=== PATIENT | male | born 1945 | race Caucasian/White ===

== ENCOUNTER 2019-01-17 09:26 | Inpatient (IN) | payer MEDICARE, OTHER ==
[~2019-01-17 09:26] MED LIST: Acetaminophen 1,000 MG in Premix Bag 1 BAG IV SCH; Aspirin 325 MG Tab.EC PO SCH; Famotidine 20 MG/2 ML SDV IVPUSH SCH; Ketorolac 30 MG/ML SDV IVPUSH SCH; Lactated Ringers 1,000 ML IV SCH; Ropivacaine 49.25 ML, Ketorolac 30 MG, EPINEPHrine 0.5 MG in Sodium Chloride 0.9% 49.25 ML INJECT SCH; Ropivacaine 49.25 ML, Ketorolac 30 MG, EPINEPHrine 0.5 MG, cloNIDine 80 MCG in Sodium C... INJECT SCH; Scopolamine 1.5 MG Transdermal Patch TRDERM SCH; Tranexamic Acid 2,000 MG in Sodium Chloride 0.9% 100 ML IV ONE
[2019-01-17] MEDS ORDERED: Lidocaine 2% 5 ML SDV ONE (09:58)
[2019-01-17] MEDS ORDERED: Propofol 200 MG/20 ML SDV ONE ×2 (09:58→09:59)
[2019-01-17] MEDS ORDERED: Midazolam 1 MG/ML 2 ML SDV ONE (09:59)
[2019-01-17] MEDS ORDERED: fentaNYL 100 MCG/2 ML SDV ONE (09:59)
--- NOTE | 2019-01-17 10:23 | PCM.PREANE ---
Preanesthetic Assessment - Anesthesia/Transfusion/Family Hx Anesthesia History: Prior Anesthesia Without Reaction Family History of Anesthesia Reaction: No Transfusion History: No Prior Transfusion(s) Intubation History: Unknown - Review of Systems General: No Symptoms Pulmonary: No Symptoms Cardiovascular: No Symptoms Gastrointestinal: No Symptoms Neurological: No Symptoms Other: Reports: None - Physical Assessment O2 Sat by Pulse Oximetry: 98 Respiratory Rate: 16 Vital Signs: Last Vital Signs Temp 36.4 C 01/17/19 09:42 Pulse 89 01/17/19 09:42 Resp 16 01/17/19 09:42 BP 142/80 H 01/17/19 09:42 Pulse Ox 98 01/17/19 09:42 Height: 1.8 m Weight: 85.729 kg ASA Class: 2 Mental Status: Alert & Oriented x3 Airway Class: Mallampati = 2 Dentition: Reports: Dentures (upper and lower) Thyro-Mental Finger Breadths: 3 Mouth Opening Finger Breadths: 3 ROM/Head Extension: Limited/Partial Lungs: Clear to Auscultation, Normal Respiratory Effort Cardiovascular: Regular Rate, Regular Rhythm - Allergies Allergies/Adverse Reactions: Allergies Allergy/AdvReac Type Severity Reaction Status Date / Time No Known Allergies Allergy Verified 01/17/19 09:43 - Blood Blood Available: No - Anesthesia Plan Pre-Op Medication Ordered: None - Acknowledgements Anesthesia Type Planned: Spinal (general anesthesia back-up) Pt an Appropriate Candidate for the Planned Anesthesia: Yes Alternatives and Risks of Anesthesia Discussed w Pt/Guardian: Yes Pt/Guardian Understands and Agrees with Anesthesia Plan: Yes PreAnesthesia Questionnaire - Past Health History Medical/Surgical History: Denies Medical/Surgical History HEENT History: Reports: Other (See Below) Other HEENT History: uses reading glasses Musculoskeletal History: Reports: Fracture, Osteoarthritis Other Musculoskeletal History: hx of fx clavicle Oncologic (Cancer) History: Reports: Squamous Cell Carcinoma Other Oncologic History: excised from left ear - Past Surgical History Head Surgeries/Procedures: Reports: None Musculoskeletal Surgical History: Reports: Arthroscopic Knee (right knee last year), Hip Replacement (left) Dermatological Surgical History: Reports: Skin Biopsy - SUBSTANCE USE Smoking Status *Q: Never Smoker Recreational Drug Use History: No - HOME MEDS Home Medications: Home Meds . [No Known Home Meds] 03/03/16 [History] - CURRENT (IN HOUSE) MEDS Current Meds: Current Medications Famotidine (Pepcid) 40 mg IVPUSH ONARRIVE [facility] Last Admin: 01/17/19 09:45 Dose: 40 mg Acetaminophen 1,000 mg/ Premix 100 mls @ 400 mls/hr IV ONARRIVE [facility] Last Admin: 01/17/19 09:50 Dose: 400 mls/hr Lactated Ringer's (Ringers, Lactated) 1,000 mls @ 100 mls/hr IV ASDIRECTED [facility] Last Admin: 01/17/19 09:44 Dose: 100 mls/hr Ropivacaine 49.25 ml/Ketorolac Tromethamine 30 mg/Epinephrine HCl 0.5 mg/ Sodium Chloride 100 mls @ 3,000 mls/hr INJECT ASDIRECTED [facility] Ketorolac Tromethamine (Toradol) 30 mg IVPUSH ONARRIVE [facility] Last Admin: 01/17/19 09:46 Dose: 30 mg Scopolamine (Transderm-Scop) 1.5 mg TRDERM ONARRIVE [facility] Last Admin: 01/17/19 09:44 Dose: 1.5 mg Discontinued Medications Fentanyl (Sublimaze) Confirm Administered Dose 100 mcg .ROUTE .STK-MED ONE Stop: 01/17/19 10:00 Ropivacaine 49.25 ml/Ketorolac Tromethamine 30 mg/Epinephrine HCl 0.5 mg/ Clonidine HCl 80 mcg/ Sodium Chloride 100 mls @ 50 mls/sec INJECT ASDIRECTED [facility] Tranexamic Acid 2,000 mg/ (Sodium Chloride) 120 mls @ 600 mls/hr IV ASDIRECTED ONE Stop: 01/17/19 08:11 Lidocaine (Xylocaine-Mpf 2%) Confirm Administered Dose 5 ml .ROUTE .STK-MED ONE Stop: 01/17/19 09:59 Midazolam HCl (Versed 1 Mg/Ml) Confirm Administered Dose 2 mg .ROUTE .STK-MED ONE Stop: 01/17/19 10:00 Propofol (Diprivan 20 Ml) Confirm Administered Dose 200 mg .ROUTE .STK-MED ONE Stop: 01/17/19 09:59 Propofol (Diprivan 20 Ml) Confirm Administered Dose 600 mg .ROUTE .STK-MED ONE Stop: 01/17/19 10:00
[2019-01-17] MEDS ORDERED: ceFAZolin/Dextrose,Iso-Osmotic 2 GM/50 ML Duplex Bag IV ONE (11:24)
[2019-01-17] MEDS ORDERED: Atropine 0.4 MG/ML 20 ML MDV IVPUSH PRN (12:17)
[2019-01-17] MEDS ORDERED: EPINEPHrine 1 MG/ML 30 ML MDV IVPUSH PRN (12:17)
[2019-01-17] MEDS ORDERED: Naloxone 0.4 MG/ML Syringe IVPUSH PRN (12:17)
[2019-01-17] MEDS ORDERED: Atropine 0.4 MG/ML SDV IVPUSH PRN (12:17)
[2019-01-17] MEDS ORDERED: 50% Dextrose in Water 50 ML Syringe IVPUSH PRN (12:17)
[2019-01-17] MEDS ORDERED: fentaNYL 100 MCG/2 ML SDV IVPUSH PRN (12:17)
[2019-01-17] MEDS ORDERED: Phenylephrine/Normal Saline 100 MCG/ML 10 ML Syringe ONE (12:22)
[2019-01-17] MEDS ORDERED: diphenhydrAMINE 25 MG Cap PO PRN (12:54)
[2019-01-17] MEDS ORDERED: Docusate Sodium 100 MG Cap PO PRN (12:54)
[2019-01-17] MEDS ORDERED: Sodium Chloride 0.9% 10 ML Syringe FLUSH PRN (12:54)
[2019-01-17] MEDS ORDERED: Ondansetron 4 MG/2 ML SDV IVPUSH PRN (12:54)
[2019-01-17] MEDS ORDERED: Aluminum Hydroxide/Magnesium Hydroxide/Simethicone Susp 30 ML Cup PO PRN (12:54)
[2019-01-17] MEDS ORDERED: Morphine PF 30 MG/30 ML PCA Vial IV PRN (12:54)
[2019-01-17] MEDS ORDERED: Sodium Chloride 0.9% 2.5 ML Syringe FLUSH PRN (12:54)
[2019-01-17] MEDS ORDERED: Bisacodyl 10 MG Supp RECTAL PRN (12:54)
[2019-01-17] MEDS ORDERED: oxyCODONE 5 MG Tab PO PRN (12:59)
--- NOTE | 2019-01-17 13:15 | PCM.OPNOTE ---
- General Post-Op/Procedure Note Date of Surgery/Procedure: 01/17/19 Operative Procedure(s): right TKA Post-Op Diagnosis: DJD right knee Anesthesia Technique: Moderate Sedation, Spinal Primary Surgeon: Radha Scott Tray Drier Operator: Flower Maldonado Tray Drier Operator: Soila Durant EBL in mLs: 50 Condition: Good Free Text/Narrative:: tt=41 min #[id number]
--- NOTE | 2019-01-17 14:02 | PCM.POSTAN ---
POST ANESTHESIA ASSESSMENT - MENTAL STATUS Mental Status: Alert, Oriented - RESPIRATORY Respiratory Status: Respiratory Rate WNL, Airway Patent, O2 Saturation Stable - CARDIOVASCULAR CV Status: Pulse Rate WNL, Blood Pressure Stable - GASTROINTESTINAL GI Status: No Symptoms - PAIN Pain Score: 0 - POST OP HYDRATION Hydration Status: Adequate & Stable
--- NOTE | 2019-01-17 14:16 | OR ---
SURGEON: Radha Scott MD DATE OF PROCEDURE: 01/17/2019 PREOPERATIVE DIAGNOSIS: Degenerative joint disease, right knee, tricompartmental. POSTOPERATIVE DIAGNOSIS: Degenerative joint disease, right knee, tricompartmental. PROCEDURES: Right total knee arthroplasty using patient specific instrumentation. ASSISTANTS: 1. Flower Maldonado PA-C. 2. SWEETIE Mario. ANESTHESIA: Spinal with sedation. ESTIMATED BLOOD LOSS: 50 mL. TOURNIQUET TIME: 41 minutes. COMPLICATIONS: None. DVT PROPHYLAXIS: PAS boot and KEVIN hose to the nonoperative leg. IMPLANTS USED: Zak Persona femoral component size 10 standard (LPS), tibial component size H, 10-mm all-polyethylene articular surface, and 35-mm all-polyethylene patella. FINDINGS: Intraoperative findings showed severe tricompartmental degenerative changes with osteophyte formation. No significant synovitis was noted. He did have evidence of prepatellar bursitis. BRIEF HISTORY: Esteban is a 73-year-old male who has had complaint of progressive right knee pain. He had failed conservative treatment. Due to his lack of response to conservative treatment, I did recommend surgical intervention. The risks and goals of the procedure were discussed with the patient and were documented preoperatively. He agreed to proceed. DESCRIPTION OF PROCEDURE: The patient was properly identified and brought to the operating room. The patient was then transferred from the operating room cart and placed on the operating table in a supine position. Anesthesia was administered by the anesthesia staff. After adequate anesthesia was obtained, a well-padded tourniquet was applied to the surgical lower extremity. Yang catheter was placed. The lower extremity was then prepped in standard fashion using ChloraPrep solution. It was then sterilely draped. A time-out was performed to ensure correct site and procedure. Preoperative antibiotics were given along with one gram of tranexamic acid IV. The surgical site had been marked preoperatively. An Esmarch was used to exsanguinate the right lower extremity and the tourniquet was inflated. An incision was made over the anterior aspect of the knee. The subcutaneous tissues were dissected down to the level of the fascia. A medial parapatellar approach to the knee was made. A portion of the infrapatellar fat pad was then excised. The distal femur was then exposed. The femoral patient-specific cutting guide was then placed. Pins were also placed. The distal femoral cutting block was placed and the distal femoral cut was made. Instrumentation was then removed. Both Whitesides' line and the epicondylar axis were then marked with electrocautery. The 4-in-1 cutting block was placed. This was placed in a slightly externally rotated position, which corresponded well with the previously drawn lines. The cutting guide was then pinned into position. An Brigido wing guide was used to check the depth of resection of our anterior condylar cut and it was felt that no notching would occur. The anterior condylar cut was then made followed by the posterior condylar cut. Both the posterior chamfer and anterior chamfer cuts were then made. The cutting block was then removed along with the excess bony remnants. We then turned our attention to the tibia. The anterior cruciate ligament and posterior cruciate ligament were released and a posterior cruciate ligament retractor was placed to allow the tibia to be pulled anteriorly. The tibial patient-specific guide was then placed on the proximal tibia. This fit anatomically. The pins were then placed. The proximal tibia cutting guide was then placed and screwed into position. The proximal tibial resection was then made with care being taken to protect the patellar tendon. The bony resection was then removed. The remainder of the medial and lateral meniscus were then excised. Care was taken to protect the popliteus tendon. The tibia was then sized to the appropriate size. The distal femur was then elevated. The posterior capsule was stripped off the distal femur both medially and laterally. The posterior capsule along with the medial and lateral gutters were then injected with a standard mixture consisting of clonidine, epinephrine, Toradol, and Ropivacaine, unless any allergies were found preoperatively. The femoral component was then placed onto the distal femur in a slightly lateral position. This fit the femur well. A box cut was then made without difficulty. This was then removed. The tibial trial along with the polyethylene liner was then placed. The knee came easily into full extension and was stable to varus and valgus stressing both in full extension and flexion. Any additional releases were performed at this time. We then returned our attention to the patella. The patella was everted and towel clamps were used to hold the patella in position. It was resected to a 15 millimeter thickness. It was then sized to the appropriate size. It was prepared in the usual fashion after placing the predetermined size clamps. This was placed in a slightly superior and medial position. The clamp was then removed. The patellar trial button was placed. The knee was taken through a range of motion using the no-touch technique. The patella tracked centrally. A drop luis enrique was then placed to check alignment. All instruments were then removed from the knee. The tibial sizer was then placed on the tibia. The tibia was prepared in the usual fashion using the reamer and broach. This was then removed. All bony surfaces were copiously irrigated with Pulsavac solution. They were then suctioned dry. Cement was prepared on the back table in the usual manner. Once it was prepared, the bone ends were again suctioned dry. The tibia was cemented into place first. This was malleted into position. Excess cement was then cleared. The femur was then placed in a similar manner. We placed the polyethylene trial into place and the knee was brought into full extension. An axial load was placed while keeping the knee in full extension. The patella button was also cemented into position and the clamp was used to hold this in place as the cement was allowed to cure. The wound was again copiously irrigated with saline solution using a Pulsavac boil off machine operator cloth. Following this 1 g of tranexamic acid was applied to the wound topically. After we had adequate curing of the cement, the knee was again taken through a range of motion. The size of the polyethylene was then determined. The polyethylene trial was then removed. The tibial tray was suctioned to make sure there was no remaining soft tissue or cement. Excess cement was cleared from around the edges of the prosthesis as well. The tourniquet was then deflated. We were able to observe for any excess bleeding and none was noted. Electrocautery was used to maintain hemostasis. An additional gram of tranexamic acid was given IV. The retractors were again placed and the predetermined polyethylene was then placed. This was locked into position without difficulty. The knee was again taken through a range of motion with no change from the prior exam. The fascial layer was closed with Number One Vicryl. The subcutaneous tissues were closed with 2-0 Vicryl. The skin was closed with fariba. Xeroform gauze was placed over the wound and a bulky dressing was applied. The patient was then awakened from anesthesia and transferred back to the operating room cart. They were brought to the recovery room in stable condition. All needle and sponge counts were correct. MIKE / SHARITA /[id number]
--- NOTE | 2019-01-17 17:01 | CR ---
EXAMINATION: Right knee HISTORY: Arthroplasty COMPARISON: 10/26/2018 TECHNIQUE: 2 views FINDINGS/IMPRESSION: Operative control films demonstrate right total knee hardware in good position and alignment. Postoperative soft tissue changes are noted.
[2019-01-17] MEDS: Ketorolac 15 MG/ML SDV IVPUSH SCH ×2 (17:12→23:05)
[2019-01-17] MEDS: Acetaminophen 1,000 MG in Premix Bag 1 BAG IV SCH ×2 (17:12→22:38)
[2019-01-17] MEDS: ceFAZolin 2 GM in Premix Bag 1 BAG IV SCH (19:55)
[2019-01-18] MEDS: ceFAZolin 2 GM in Premix Bag 1 BAG IV SCH (04:14)
[2019-01-18] MEDS: Acetaminophen 1,000 MG in Premix Bag 1 BAG IV SCH (05:03)
[2019-01-18] MEDS ORDERED: Morphine 2 MG/ML Syringe IVPUSH PRN (06:00)
--- NOTE | 2019-01-18 07:04 | PCM.SURGPN ---
Addendum entered and electronically signed by Flower Maldonado PA 01/18/19 07: 20: case management has shared that the patient will be transferring to SNF on . will also discuss traumatic contreras removal and appropriate care needed with urology Original Note: <Flower Maldonado - Last Filed: 01/18/19 06:58> - General Info Date of Service: 01/18/19 Date of Surgery/Procedure: 01/17/19 POD#: 1 Functional Status: Reports: Pain Controlled, Tolerating Diet, Ambulating, Urinating - Review of Systems General: Reports: No Symptoms Pulmonary: Reports: No Symptoms Cardiovascular: Reports: No Symptoms Genitourinary: Reports: Hematuria Systems Review Comment:: pt resting comfortably in bed minimal pain overnight to knee had traumatic contreras removal last night when getting OOB, has had minimal associated uro pain, + ricco hematuria has been OOB to bathroom with wheeled walker will go home with home health/PT no specific concerns today - Patient Data Vitals - Most Recent: Last Vital Signs Temp 97.9 F 01/18/19 02:59 Pulse 76 01/18/19 02:59 Resp 18 01/18/19 02:59 BP 96/49 L 01/18/19 02:59 Pulse Ox 96 01/18/19 02:59 Weight - Most Recent: 85.729 kg I&O - Last 24 Hours: Intake & Output 01/17/19 01/17/19 01/18/19 14:59 22:59 06:59 Intake Total 2750 0 Output Total 180 50 Balance 2570 -50 Lab Results Last 24 Hrs: Laboratory Results - last 24 hr 01/17/19 01/18/19 Range/Units 09:52 05:10 Hgb 11.7 L (13.0-17.0) g/dL Hct 34.5 L (38.0-50.0) % Blood Type A POSITIVE Antibody Screen NEGATIVE Med Orders - Current: Current Medications Al Hydroxide/Mg Hydroxide (Mag-Al Plus) 30 ml PO Q4H PRN PRN Reason: Indigestion Aspirin (Ecotrin) 325 mg PO BID JACK Bisacodyl (Dulcolax) 10 mg RECTAL DAILY PRN PRN Reason: Constipation Celecoxib (Celebrex) 200 mg PO BID JACK Diphenhydramine HCl (Benadryl) 25 - 50 mg PO Q6H PRN PRN Reason: Itching Docusate Sodium (Colace) 100 mg PO BID PRN PRN Reason: Constipation Famotidine (Pepcid) 40 mg PO DAILY [facility] Lactated Ringer's (Ringers, Lactated) 1,000 mls @ 100 mls/hr IV ASDIRECTED [facility] Last Admin: 01/17/19 09:44 Dose: 100 mls/hr Ropivacaine 49.25 ml/Ketorolac Tromethamine 30 mg/Epinephrine HCl 0.5 mg/ Sodium Chloride 100 mls @ 3,000 mls/hr INJECT ASDIRECTED [facility] Morphine Sulfate (Morphine) 1 - 3 mg IVPUSH Q3H PRN PRN Reason: Pain Ondansetron HCl (Zofran) 4 mg IVPUSH Q6H PRN PRN Reason: Nausea/Vomiting Oxycodone/Acetaminophen (Percocet 325-5 Mg) 1 - 2 tab PO Q4H PRN PRN Reason: Pain Polyethylene Glycol (Miralax) 17 gm PO DAILY [facility] Scopolamine (Transderm-Scop) 1.5 mg TRDERM ONARRIVE [facility] Last Admin: 01/17/19 09:44 Dose: 1.5 mg Sodium Chloride (Saline Flush) 10 ml FLUSH ASDIRECTED PRN PRN Reason: Keep Vein Open Sodium Chloride (Saline Flush) 2.5 ml FLUSH ASDIRECTED PRN PRN Reason: Keep Vein Open Discontinued Medications Atropine Sulfate (Atropine) 1 mg IVPUSH ASDIRECTED PRN PRN Reason: ACLS Guidelines Atropine Sulfate (Atropine) 0.5 mg IVPUSH ASDIRECTED PRN PRN Reason: Hypo-Perfusion Cefazolin Sodium/Dextrose (Ancef) Confirm Administered Dose 2 gm IV .STK-MED ONE Stop: 01/17/19 11:25 Dextrose/Water (Dextrose 50% In Water) 50 ml IVPUSH ASDIRECTED PRN PRN Reason: Hypoglycemia Epinephrine HCl (Adrenalin) 1 mg IVPUSH ASDIRECTED PRN PRN Reason: ACLS Guidelines Famotidine (Pepcid) 40 mg IVPUSH ONARRIVE [facility] Last Admin: 01/17/19 09:45 Dose: 40 mg Fentanyl (Sublimaze) Confirm Administered Dose 100 mcg .ROUTE .STK-MED ONE Stop: 01/17/19 10:00 Fentanyl (Sublimaze) 50 - 100 mcg IVPUSH Q5M PRN PRN Reason: Pain Acetaminophen 1,000 mg/ Premix 100 mls @ 400 mls/hr IV ONARRIVE [facility] Last Admin: 01/17/19 09:50 Dose: 400 mls/hr Ropivacaine 49.25 ml/Ketorolac Tromethamine 30 mg/Epinephrine HCl 0.5 mg/ Clonidine HCl 80 mcg/ Sodium Chloride 100 mls @ 50 mls/sec INJECT ASDIRECTED [facility] Tranexamic Acid 2,000 mg/ (Sodium Chloride) 120 mls @ 600 mls/hr IV ASDIRECTED ONE Stop: 01/17/19 08:11 Last Admin: 01/17/19 15:08 Dose: Not Given Acetaminophen 1,000 mg/ Premix 100 mls @ 400 mls/hr IV Q6H [facility] Stop: 01/18/19 05:14 Last Admin: 01/18/19 05:03 Dose: 400 mls/hr Cefazolin Sodium/Dextrose 2 gm (/ Premix) 50 mls @ 100 mls/hr IV Q8H [facility] Stop: 01/18/19 04:29 Last Admin: 01/18/19 04:14 Dose: 100 mls/hr Ketorolac Tromethamine (Toradol) 30 mg IVPUSH ONARRIVE [facility] Last Admin: 01/17/19 09:46 Dose: 30 mg Ketorolac Tromethamine (Toradol) 15 mg IVPUSH Q6H [facility] Stop: 01/18/19 00:01 Last Admin: 01/17/19 23:05 Dose: 15 mg Lidocaine (Xylocaine-Mpf 2%) Confirm Administered Dose 5 ml .ROUTE .STK-MED [facility] Stop: 01/17/19 09:59 Midazolam HCl (Versed 1 Mg/Ml) Confirm Administered Dose 2 mg .ROUTE .STK-MED ONE Stop: 01/17/19 10:00 Morphine Sulfate (Morphine General Worker 30 Mg In 30 Ml) 30 mg IV ASDIRECTED PRN; Protocol PRN Reason: Pain Stop: 01/18/19 06:00 Last Admin: 01/17/19 13:49 Dose: 30 mg Naloxone HCl (Narcan) 0.1 mg IVPUSH ASDIRECTED PRN PRN Reason: Respiratory Depression Oxycodone HCl (Oxycodone) 5 - 10 mg PO Q4H PRN PRN Reason: Pain Stop: 01/18/19 06:00 Last Admin: 01/17/19 17:14 Dose: 5 mg Phenylephrine HCl (Phenylephrine In Ns 100 Mcg/Ml) Confirm Administered Dose 1 mg .ROUTE .STK-MED ONE Stop: 01/17/19 12:23 Propofol (Diprivan 20 Ml) Confirm Administered Dose 200 mg .ROUTE .STK-MED ONE Stop: 01/17/19 09:59 Propofol (Diprivan 20 Ml) Confirm Administered Dose 600 mg .ROUTE .STK-MED ONE Stop: 01/17/19 10:00 Tranexamic Acid (Cyklokapron) Confirm Administered Dose 2,000 mg .ROUTE .STK- MED ONE Stop: 01/17/19 10:43 - Exam Wound/Incisions: Dressing Dry and Intact General: Alert, Oriented Physical Findings Comment:: vss, afeb hgb 11.7 uo 230 but not counted for overnight shift - Problem List Review Problem List Initiated/Reviewed/Updated: Yes - My Orders Last 24 Hours: Active Orders 24 hr Category Date Time Status Patient Status [ADT] Routine ADT 01/17/19 06:00 Active Communication Order [RC] PRN Care 01/17/19 12:54 Active Communication Order [RC] PRN Care 01/17/19 12:54 Active Insert Urinary Catheter [OM.PC] Q24H Care 01/17/19 08:00 Ordered Insert Urinary Catheter [OM.PC] Q24H Care 01/18/19 08:00 Ordered Neurovascular Check [RC] Q2HR Care 01/17/19 12:54 Active Notify Provider Vital Signs [RC] ASDIRECTED Care 01/17/19 12:17 Active Notify Provider Vital Signs [RC] ASDIRECTED Care 01/17/19 12:54 Active Oxygen Therapy [RC] PRN Care 01/17/19 12:17 Active RT Incentive Spirometry [RC] Q1HWA Care 01/17/19 12:54 Active Urinary Catheter Removal [RC] ASDIRECTED Care 01/18/19 06:00 Active Vital Signs [RC] PER UNIT ROUTINE Care 01/17/19 12:54 Active Wound Care [RC] DAILY Care 01/17/19 12:54 Active PT Evaluation and Treatment [CONS] Routine Cons 01/17/19 12:54 Active Regular Diet [DIET] Diet 01/17/19 Breakfast Active HEMOGLOBIN/HEMATOCRIT,HH [HEME] DAILY Lab 01/19/19 06:00 Ordered Acetaminophen/oxyCODONE [Percocet 325-5 MG] Med 01/18/19 06:00 Active 1 - 2 tab PO Q4H PRN Alum Hydrox/Mag Hydrox/Simeth [Mag-Al Plus] Med 01/17/19 12:54 Active 30 ml PO Q4H PRN Aspirin [Ecotrin] Med 01/18/19 09:00 Active 325 mg PO BID Bisacodyl [Dulcolax] Med 01/17/19 12:54 Active 10 mg RECTAL DAILY PRN Celecoxib [CeleBREX] Med 01/18/19 09:00 Active 200 mg PO BID Docusate Sodium [Colace] Med 01/17/19 12:54 Active 100 mg PO BID PRN Famotidine [Pepcid] Med 01/18/19 09:00 Active 40 mg PO DAILY Lactated Ringers [Ringers, Lactated] 1,000 ml Med 01/17/19 06:00 Active IV ASDIRECTED Morphine Med 01/18/19 06:00 Active 1 - 3 mg IVPUSH Q3H PRN Ondansetron [Zofran] Med 01/17/19 12:54 Active 4 mg IVPUSH Q6H PRN Polyethylene Glycol 3350 [MiraLAX] Med 01/18/19 09:00 Active 17 gm PO DAILY Ropivacaine [Naropin 0.2%] 49.25 ml Med 01/17/19 08:00 Active Ketorolac [Toradol] 30 mg EPINEPHrine [Adrenalin] 0.5 mg Sodium Chloride 0.9% [Normal Saline] 49.25 ml INJECT ASDIRECTED Scopolamine [Transderm-Scop] Med 01/17/19 06:00 Active 1.5 mg TRDERM ONARRIVE Sodium Chloride 0.9% [Saline Flush] Med 01/17/19 12:54 Active 10 ml FLUSH ASDIRECTED PRN Sodium Chloride 0.9% [Saline Flush] Med 01/17/19 12:54 Active 2.5 ml FLUSH ASDIRECTED PRN diphenhydrAMINE [Benadryl] Med 01/17/19 12:54 Active 25 - 50 mg PO Q6H PRN Antiembolic Hose [OM.PC] Routine Oth 01/17/19 06:00 Ordered Convert IV to Saline Lock [OM.PC] PRN Oth 01/18/19 06:00 Ordered Ice Therapy [OM.PC] Routine Ot 01/17/19 12:54 Ordered Obtain Home Medication List [OM.PC] Routine Oth 01/17/19 06:00 Ordered Sequential Compression Device [OM.PC] Routine Ot 01/17/19 06:00 Ordered Medication Orders Al Hydroxide/Mg Hydroxide (Mag-Al Plus) 30 ml PO Q4H PRN PRN Reason: Indigestion Aspirin (Ecotrin) 325 mg PO BID [facility] Bisacodyl (Dulcolax) 10 mg RECTAL DAILY PRN PRN Reason: Constipation Celecoxib (Celebrex) 200 mg PO BID [facility] Diphenhydramine HCl (Benadryl) 25 - 50 mg PO Q6H PRN PRN Reason: Itching Docusate Sodium (Colace) 100 mg PO BID PRN PRN Reason: Constipation Famotidine (Pepcid) 40 mg PO DAILY [facility] Lactated Ringer's (Ringers, Lactated) 1,000 mls @ 100 mls/hr IV ASDIRECTED [facility] Last Admin: 01/17/19 09:44 Dose: 100 mls/hr Ropivacaine 49.25 ml/Ketorolac Tromethamine 30 mg/Epinephrine HCl 0.5 mg/ Sodium Chloride 100 mls @ 3,000 mls/hr INJECT ASDIRECTED [facility] Morphine Sulfate (Morphine) 1 - 3 mg IVPUSH Q3H PRN PRN Reason: Pain Ondansetron HCl (Zofran) 4 mg IVPUSH Q6H PRN PRN Reason: Nausea/Vomiting Oxycodone/Acetaminophen (Percocet 325-5 Mg) 1 - 2 tab PO Q4H PRN PRN Reason: Pain Polyethylene Glycol (Miralax) 17 gm PO DAILY [facility] Scopolamine (Transderm-Scop) 1.5 mg TRDERM ONARRIVE [facility] Last Admin: 01/17/19 09:44 Dose: 1.5 mg Sodium Chloride (Saline Flush) 10 ml FLUSH ASDIRECTED PRN PRN Reason: Keep Vein Open Sodium Chloride (Saline Flush) 2.5 ml FLUSH ASDIRECTED PRN PRN Reason: Keep Vein Open - Assessment Assessment (Free Text/Narrative):: POD#1 R TKA acute posthemorrhagic anemia traumatic contreras removal - Plan Plan (Free Text/Narrative):: DC IV fluids - saline lock IV DC [employer] - morphine IV prn breakthrough pain DC oxycodone - percocet 5/325 prn available ASA 325mg PO BID as DVT prophylaxis dressing change to aquacel this afternoon PT today pt has wheeled walker or script has been written anticipate up to 72 hour stay for IV pain medication and continued physical therapy pt will require FWW for safe mobility/stability until increased strength/gait independence s/p TKA - has been safely mobilizing in room with FWW. d/ch medications written consult to home health: homebound status s/p R TKA, unable to drive minimum of 4 weeks s/p R TKA, lives out of town by himself. Will need PT 3-4 times per week for modalities, ROM, stretching, strengthening, gait training, mobilization , stabilization, proprioception, home exercises. [facility] services for wound care and ADLs <Radha Scott R - Last Filed: 01/18/19 18:07> - Patient Data Vitals - Most Recent: Last Vital Signs Temp 98 F 01/18/19 15:52 Pulse 102 H 01/18/19 15:52 Resp 16 01/18/19 15:52 BP 112/75 01/18/19 15:52 Pulse Ox 97 01/18/19 15:52 I&O - Last 24 Hours: Intake & Output 01/18/19 01/18/19 01/18/19 06:59 14:59 22:59 Intake Total 700 Output Total 100 Balance 600 Lab Results Last 24 Hrs: Laboratory Results - last 24 hr 01/18/19 Range/Units 05:10 Hgb 11.7 L (13.0-17.0) g/dL Hct 34.5 L (38.0-50.0) % Med Orders - Current: Current Medications Acetaminophen (Tylenol Extra Strength) 1,000 mg PO Q6H [facility] Last Admin: 01/18/19 17:26 Dose: 1,000 mg Al Hydroxide/Mg Hydroxide (Mag-Al Plus) 30 ml PO Q4H PRN PRN Reason: Indigestion Aspirin (Ecotrin) 325 mg PO BID [facility] Last Admin: 01/18/19 09:11 Dose: 325 mg Bisacodyl (Dulcolax) 10 mg RECTAL DAILY PRN PRN Reason: Constipation Celecoxib (Celebrex) 200 mg PO BID [facility] Last Admin: 01/18/19 09:11 Dose: 200 mg Diphenhydramine HCl (Benadryl) 25 - 50 mg PO Q6H PRN PRN Reason: Itching Docusate Sodium (Colace) 100 mg PO BID PRN PRN Reason: Constipation Famotidine (Pepcid) 40 mg PO DAILY [facility] Last Admin: 01/18/19 09:09 Dose: 40 mg Morphine Sulfate (Morphine) 1 - 3 mg IVPUSH Q3H PRN PRN Reason: Pain Ondansetron HCl (Zofran) 4 mg IVPUSH Q6H PRN PRN Reason: Nausea/Vomiting Polyethylene Glycol (Miralax) 17 gm PO DAILY [facility] Last Admin: 01/18/19 09:12 Dose: 17 gm Sodium Chloride (Saline Flush) 10 ml FLUSH ASDIRECTED PRN PRN Reason: Keep Vein Open Sodium Chloride (Saline Flush) 2.5 ml FLUSH ASDIRECTED PRN PRN Reason: Keep Vein Open Discontinued Medications Atropine Sulfate (Atropine) 1 mg IVPUSH ASDIRECTED PRN PRN Reason: ACLS Guidelines Atropine Sulfate (Atropine) 0.5 mg IVPUSH ASDIRECTED PRN PRN Reason: Hypo-Perfusion Cefazolin Sodium/Dextrose (Ancef) Confirm Administered Dose 2 gm IV .STK-MED ONE Stop: 01/17/19 11:25 Dextrose/Water (Dextrose 50% In Water) 50 ml IVPUSH ASDIRECTED PRN PRN Reason: Hypoglycemia Epinephrine HCl (Adrenalin) 1 mg IVPUSH ASDIRECTED PRN PRN Reason: ACLS Guidelines Famotidine (Pepcid) 40 mg IVPUSH ONARRIVE [facility] Last Admin: 01/17/19 09:45 Dose: 40 mg Fentanyl (Sublimaze) Confirm Administered Dose 100 mcg .ROUTE .STK-MED ONE Stop: 01/17/19 10:00 Fentanyl (Sublimaze) 50 - 100 mcg IVPUSH Q5M PRN PRN Reason: Pain Acetaminophen 1,000 mg/ Premix 100 mls @ 400 mls/hr IV ONARRIVE [facility] Last Admin: 01/17/19 09:50 Dose: 400 mls/hr Ropivacaine 49.25 ml/Ketorolac Tromethamine 30 mg/Epinephrine HCl 0.5 mg/ Clonidine HCl 80 mcg/ Sodium Chloride 100 mls @ 50 mls/sec INJECT ASDIRECTED [facility] Lactated Ringer's (Ringers, Lactated) 1,000 mls @ 100 mls/hr IV ASDIRECTED [facility] Last Admin: 01/17/19 09:44 Dose: 100 mls/hr Tranexamic Acid 2,000 mg/ (Sodium Chloride) 120 mls @ 600 mls/hr IV ASDIRECTED ONE Stop: 01/17/19 08:11 Last Admin: 01/17/19 15:08 Dose: Not Given Ropivacaine 49.25 ml/Ketorolac Tromethamine 30 mg/Epinephrine HCl 0.5 mg/ Sodium Chloride 100 mls @ 3,000 mls/hr INJECT ASDIRECTED [facility] Acetaminophen 1,000 mg/ Premix 100 mls @ 400 mls/hr IV Q6H [facility] Stop: 01/18/19 05:14 Last Admin: 01/18/19 05:03 Dose: 400 mls/hr Cefazolin Sodium/Dextrose 2 gm (/ Premix) 50 mls @ 100 mls/hr IV Q8H [facility] Stop: 01/18/19 04:29 Last Admin: 01/18/19 04:14 Dose: 100 mls/hr Ketorolac Tromethamine (Toradol) 30 mg IVPUSH ONARRIVE [facility] Last Admin: 01/17/19 09:46 Dose: 30 mg Ketorolac Tromethamine (Toradol) 15 mg IVPUSH Q6H [facility] Stop: 01/18/19 00:01 Last Admin: 01/17/19 23:05 Dose: 15 mg Lidocaine (Xylocaine-Mpf 2%) Confirm Administered Dose 5 ml .ROUTE .STK-MED ONE Stop: 01/17/19 09:59 Midazolam HCl (Versed 1 Mg/Ml) Confirm Administered Dose 2 mg .ROUTE .STK-MED ONE Stop: 01/17/19 10:00 Morphine Sulfate (Morphine General Worker 30 Mg In 30 Ml) 30 mg IV ASDIRECTED PRN; Protocol PRN Reason: Pain Stop: 01/18/19 06:00 Last Admin: 01/17/19 13:49 Dose: 30 mg Naloxone HCl (Narcan) 0.1 mg IVPUSH ASDIRECTED PRN PRN Reason: Respiratory Depression Oxycodone HCl (Oxycodone) 5 - 10 mg PO Q4H PRN PRN Reason: Pain Stop: 01/18/19 06:00 Last Admin: 01/17/19 17:14 Dose: 5 mg Oxycodone/Acetaminophen (Percocet 325-5 Mg) 1 - 2 tab PO Q4H PRN PRN Reason: Pain Last Admin: 01/18/19 12:47 Dose: 2 tab Phenylephrine HCl (Phenylephrine In Ns 100 Mcg/Ml) Confirm Administered Dose 1 mg .ROUTE .STK-MED ONE Stop: 01/17/19 12:23 Propofol (Diprivan 20 Ml) Confirm Administered Dose 200 mg .ROUTE .STK-MED ONE Stop: 01/17/19 09:59 Propofol (Diprivan 20 Ml) Confirm Administered Dose 600 mg .ROUTE .STK-MED ONE Stop: 01/17/19 10:00 Scopolamine (Transderm-Scop) 1.5 mg TRDERM ONARRIVE [facility] Last Admin: 01/17/19 09:44 Dose: 1.5 mg Tranexamic Acid (Cyklokapron) Confirm Administered Dose 2,000 mg .ROUTE .STK- MED ONE Stop: 01/17/19 10:43 - My Orders Last 24 Hours: Active Orders 24 hr Category Date Time Status Insert Urinary Catheter [OM.PC] Q24H Care 01/18/19 08:00 Ordered HEMOGLOBIN/HEMATOCRIT,HH [HEME] DAILY Lab 01/19/19 06:00 Ordered Acetaminophen [Tylenol Extra Strength] Med 01/18/19 18:00 Active 1,000 mg PO Q6H Aspirin [Ecotrin] Med 01/18/19 09:00 Active 325 mg PO BID Celecoxib [CeleBREX] Med 01/18/19 09:00 Active 200 mg PO BID Famotidine [Pepcid] Med 01/18/19 09:00 Active 40 mg PO DAILY Morphine Med 01/18/19 06:00 Active 1 - 3 mg IVPUSH Q3H PRN Polyethylene Glycol 3350 [MiraLAX] Med 01/18/19 09:00 Active 17 gm PO DAILY Convert IV to Saline Lock [OM.PC] PRN Oth 01/18/19 06:00 Ordered Medication Orders Acetaminophen (Tylenol Extra Strength) 1,000 mg PO Q6H [facility] Last Admin: 01/18/19 17:26 Dose: 1,000 mg Al Hydroxide/Mg Hydroxide (Mag-Al Plus) 30 ml PO Q4H PRN PRN Reason: Indigestion Aspirin (Ecotrin) 325 mg PO BID [facility] Last Admin: 01/18/19 09:11 Dose: 325 mg Bisacodyl (Dulcolax) 10 mg RECTAL DAILY PRN PRN Reason: Constipation Celecoxib (Celebrex) 200 mg PO BID [facility] Last Admin: 01/18/19 09:11 Dose: 200 mg Diphenhydramine HCl (Benadryl) 25 - 50 mg PO Q6H PRN PRN Reason: Itching Docusate Sodium (Colace) 100 mg PO BID PRN PRN Reason: Constipation Famotidine (Pepcid) 40 mg PO DAILY [facility] Last Admin: 01/18/19 09:09 Dose: 40 mg Morphine Sulfate (Morphine) 1 - 3 mg IVPUSH Q3H PRN PRN Reason: Pain Ondansetron HCl (Zofran) 4 mg IVPUSH Q6H PRN PRN Reason: Nausea/Vomiting Polyethylene Glycol (Miralax) 17 gm PO DAILY [facility] Last Admin: 01/18/19 09:12 Dose: 17 gm Sodium Chloride (Saline Flush) 10 ml FLUSH ASDIRECTED PRN PRN Reason: Keep Vein Open Sodium Chloride (Saline Flush) 2.5 ml FLUSH ASDIRECTED PRN PRN Reason: Keep Vein Open - Plan Plan (Free Text/Narrative):: 1805 Patient seen and examined. Agree with above note. Patient scheduled to go to [facility] on . Progressing with PT. Currently sitting up in chair. Some confusion with narcotics. Switched to Tylenol only and seems to be controlling pain. No other complaints. Traumatic contreras removal discussed with urologist per Joel note. Continue PT and mobilization. Discharge to [facility] on . ASA/SCD for DVT prophylaxis. Continue current pain management. rrk
[2019-01-18] MEDS: Famotidine 20 MG Tab PO SCH (09:09)
[2019-01-18] MEDS: Acetaminophen/oxyCODONE 325-5 MG Tab PO PRN ×2 (09:09→12:47)
[2019-01-18] MEDS: Celecoxib 100 MG Cap PO SCH ×2 (09:11→20:10)
[2019-01-18] MEDS: Aspirin 325 MG Tab.EC PO SCH ×2 (09:11→20:09)
[2019-01-18] MEDS: Polyethylene Glycol 3350 Powder 17 GM Packet PO SCH (09:12)
--- NOTE | 2019-01-18 16:30 | PCM.SN ---
- Free Text/Narrative Note: pt has had some slight confusion overnight and today, not specifically related to narcotic administration has minimal pain with percocet 5/325 scopolamine patch was removed on noon rounds pt has been up ambulating discussed traumatic contreras removal with Dr Cardozo who recommends managing conservatively, advised pt will continue with ricco hematuria for some time, and no further follow-up or referral is necessary in absence of dysuria/ retention dc percocet 5/325, transition to norco 5/325, try to minimize narcotics d/t confusion, may consider discontinuing narcotics completely and scheduling tylenol if there is no resolution overnight will continue with PT/pain management until transfer to SNF on 01/20/19
[2019-01-18] MEDS ORDERED: Acetaminophen/HYDROcodone 325-5 MG Tab PO PRN (16:31)
[2019-01-18] MEDS: Acetaminophen 500 MG Tab PO SCH ×2 (17:26→23:42)
[2019-01-19] MEDS: Acetaminophen 500 MG Tab PO SCH ×3 (06:34→18:25)
--- NOTE | 2019-01-19 07:04 | PCM48HPAN ---
Post Anesthesia Note - EVALUATION WITHIN 48HRS OF ANESTHETIC Vital Signs in Normal Range: Yes Patient Participated in Evaluation: Yes Respiratory Function Stable: Yes Airway Patent: Yes Cardiovascular Function Stable: Yes Hydration Status Stable: Yes Pain Control Satisfactory: Yes Nausea and Vomiting Control Satisfactory: Yes Mental Status Recovered: Yes Resp Rate: 18
[2019-01-19] MEDS: Aspirin 325 MG Tab.EC PO SCH ×2 (08:36→20:53)
[2019-01-19] MEDS: Celecoxib 100 MG Cap PO SCH ×2 (08:36→20:53)
[2019-01-19] MEDS: Famotidine 20 MG Tab PO SCH (08:36)
[2019-01-19] MEDS: Polyethylene Glycol 3350 Powder 17 GM Packet PO SCH (08:37)
--- NOTE | 2019-01-19 14:47 | PCM.SURGPN ---
- General Info Date of Service: 01/19/19 Date of Surgery/Procedure: 01/17/19 POD#: 2 Functional Status: Reports: Pain Controlled, Tolerating Diet, Ambulating, Urinating - Review of Systems General: Reports: No Symptoms Pulmonary: Reports: No Symptoms Cardiovascular: Reports: No Symptoms Gastrointestinal: Reports: No Symptoms Genitourinary: Reports: No Symptoms Systems Review Comment:: pt was showering during AM rounds, resting comfortably this afternoon pain controlled with scheduled tylenol - all narcotics were discontinued yesterday afternoon more pleasant this afternoon, was agitated and tremulous yesterday participated well with PT, ambulating well with wheeled walker reports significant improvement in hematuria, denies dysuria will transfer to SNF tomorrow - Patient Data Vitals - Most Recent: Last Vital Signs Temp 98 F 01/19/19 12:50 Pulse 90 01/19/19 12:50 Resp 18 01/19/19 12:50 BP 133/68 01/19/19 12:50 Pulse Ox 97 01/19/19 12:50 Weight - Most Recent: 85.729 kg I&O - Last 24 Hours: Intake & Output 01/18/19 01/19/19 01/19/19 22:59 06:59 14:59 Intake Total 700 800 Output Total 100 Balance 600 800 Lab Results Last 24 Hrs: Laboratory Results - last 24 hr 01/19/19 Range/Units 04:55 Hgb 9.9 L (13.0-17.0) g/dL Hct 28.5 L (38.0-50.0) % Med Orders - Current: Current Medications Acetaminophen (Tylenol Extra Strength) 1,000 mg PO Q6H [facility] Last Admin: 01/19/19 12:39 Dose: 1,000 mg Al Hydroxide/Mg Hydroxide (Mag-Al Plus) 30 ml PO Q4H PRN PRN Reason: Indigestion Aspirin (Ecotrin) 325 mg PO BID [facility] Last Admin: 01/19/19 08:36 Dose: 325 mg Bisacodyl (Dulcolax) 10 mg RECTAL DAILY PRN PRN Reason: Constipation Celecoxib (Celebrex) 200 mg PO BID [facility] Last Admin: 01/19/19 08:36 Dose: 200 mg Diphenhydramine HCl (Benadryl) 25 - 50 mg PO Q6H PRN PRN Reason: Itching Docusate Sodium (Colace) 100 mg PO BID PRN PRN Reason: Constipation Famotidine (Pepcid) 40 mg PO DAILY [facility] Last Admin: 01/19/19 08:36 Dose: 40 mg Morphine Sulfate (Morphine) 1 - 3 mg IVPUSH Q3H PRN PRN Reason: Pain Ondansetron HCl (Zofran) 4 mg IVPUSH Q6H PRN PRN Reason: Nausea/Vomiting Polyethylene Glycol (Miralax) 17 gm PO DAILY [facility] Last Admin: 01/19/19 08:37 Dose: 17 gm Sodium Chloride (Saline Flush) 10 ml FLUSH ASDIRECTED PRN PRN Reason: Keep Vein Open Sodium Chloride (Saline Flush) 2.5 ml FLUSH ASDIRECTED PRN PRN Reason: Keep Vein Open Discontinued Medications Atropine Sulfate (Atropine) 1 mg IVPUSH ASDIRECTED PRN PRN Reason: ACLS Guidelines Atropine Sulfate (Atropine) 0.5 mg IVPUSH ASDIRECTED PRN PRN Reason: Hypo-Perfusion Cefazolin Sodium/Dextrose (Ancef) Confirm Administered Dose 2 gm IV .STAchaLa-MED ONE Stop: 01/17/19 11:25 Dextrose/Water (Dextrose 50% In Water) 50 ml IVPUSH ASDIRECTED PRN PRN Reason: Hypoglycemia Epinephrine HCl (Adrenalin) 1 mg IVPUSH ASDIRECTED PRN PRN Reason: ACLS Guidelines Famotidine (Pepcid) 40 mg IVPUSH ONARRIVE [facility] Last Admin: 01/17/19 09:45 Dose: 40 mg Fentanyl (Sublimaze) Confirm Administered Dose 100 mcg .ROUTE .STAchaLa-MED ONE Stop: 01/17/19 10:00 Fentanyl (Sublimaze) 50 - 100 mcg IVPUSH Q5M PRN PRN Reason: Pain Acetaminophen 1,000 mg/ Premix 100 mls @ 400 mls/hr IV ONARRIVE [facility] Last Admin: 01/17/19 09:50 Dose: 400 mls/hr Ropivacaine 49.25 ml/Ketorolac Tromethamine 30 mg/Epinephrine HCl 0.5 mg/ Clonidine HCl 80 mcg/ Sodium Chloride 100 mls @ 50 mls/sec INJECT ASDIRECTED [facility] Lactated Ringer's (Ringers, Lactated) 1,000 mls @ 100 mls/hr IV ASDIRECTED [facility] Last Admin: 01/17/19 09:44 Dose: 100 mls/hr Tranexamic Acid 2,000 mg/ (Sodium Chloride) 120 mls @ 600 mls/hr IV ASDIRECTED ONE Stop: 01/17/19 08:11 Last Admin: 01/17/19 15:08 Dose: Not Given Ropivacaine 49.25 ml/Ketorolac Tromethamine 30 mg/Epinephrine HCl 0.5 mg/ Sodium Chloride 100 mls @ 3,000 mls/hr INJECT ASDIRECTED [facility] Acetaminophen 1,000 mg/ Premix 100 mls @ 400 mls/hr IV Q6H [facility] Stop: 01/18/19 05:14 Last Admin: 01/18/19 05:03 Dose: 400 mls/hr Cefazolin Sodium/Dextrose 2 gm (/ Premix) 50 mls @ 100 mls/hr IV Q8H [facility] Stop: 01/18/19 04:29 Last Admin: 01/18/19 04:14 Dose: 100 mls/hr Ketorolac Tromethamine (Toradol) 30 mg IVPUSH ONARRIVE [facility] Last Admin: 01/17/19 09:46 Dose: 30 mg Ketorolac Tromethamine (Toradol) 15 mg IVPUSH Q6H [facility] Stop: 01/18/19 00:01 Last Admin: 01/17/19 23:05 Dose: 15 mg Lidocaine (Xylocaine-Mpf 2%) Confirm Administered Dose 5 ml .ROUTE .STK-MED ONE Stop: 01/17/19 09:59 Midazolam HCl (Versed 1 Mg/Ml) Confirm Administered Dose 2 mg .ROUTE .STK-MED ONE Stop: 01/17/19 10:00 Morphine Sulfate (Morphine Patient Access Associate 30 Mg In 30 Ml) 30 mg IV ASDIRECTED PRN; Protocol PRN Reason: Pain Stop: 01/18/19 06:00 Last Admin: 01/17/19 13:49 Dose: 30 mg Naloxone HCl (Narcan) 0.1 mg IVPUSH ASDIRECTED PRN PRN Reason: Respiratory Depression Oxycodone HCl (Oxycodone) 5 - 10 mg PO Q4H PRN PRN Reason: Pain Stop: 01/18/19 06:00 Last Admin: 01/17/19 17:14 Dose: 5 mg Oxycodone/Acetaminophen (Percocet 325-5 Mg) 1 - 2 tab PO Q4H PRN PRN Reason: Pain Last Admin: 01/18/19 12:47 Dose: 2 tab Phenylephrine HCl (Phenylephrine In Ns 100 Mcg/Ml) Confirm Administered Dose 1 mg .ROUTE .STK-MED ONE Stop: 01/17/19 12:23 Propofol (Diprivan 20 Ml) Confirm Administered Dose 200 mg .ROUTE .STK-MED ONE Stop: 01/17/19 09:59 Propofol (Diprivan 20 Ml) Confirm Administered Dose 600 mg .ROUTE .STK-MED ONE Stop: 01/17/19 10:00 Scopolamine (Transderm-Scop) 1.5 mg TRDERM ONARRIVE [facility] Last Admin: 01/17/19 09:44 Dose: 1.5 mg Tranexamic Acid (Cyklokapron) Confirm Administered Dose 2,000 mg .ROUTE .STK- MED ONE Stop: 01/17/19 10:43 - Exam Wound/Incisions: Dressing Dry and Intact General: Alert, Oriented Cardiovascular: Regular Rate, Regular Rhythm Extremities: Other (exam RLE - aquacel in place, at/ehl/gastroc 5/5, dp 2+, sensation intact distally) Physical Findings Comment:: vss, afeb hgb 9.9 - Problem List Review Problem List Initiated/Reviewed/Updated: Yes - My Orders Last 24 Hours: Active Orders 24 hr Category Date Time Status Acetaminophen [Tylenol Extra Strength] Med 01/18/19 18:00 Active 1,000 mg PO Q6H Medication Orders Acetaminophen (Tylenol Extra Strength) 1,000 mg PO Q6H [facility] Last Admin: 01/19/19 12:39 Dose: 1,000 mg Admin: 01/19/19 06:34 Dose: 1,000 mg Admin: 01/18/19 23:42 Dose: 1,000 mg Admin: 01/18/19 17:26 Dose: 1,000 mg Al Hydroxide/Mg Hydroxide (Mag-Al Plus) 30 ml PO Q4H PRN PRN Reason: Indigestion Aspirin (Ecotrin) 325 mg PO BID [facility] Last Admin: 01/19/19 08:36 Dose: 325 mg Admin: 01/18/19 20:09 Dose: 325 mg Admin: 01/18/19 09:11 Dose: 325 mg Bisacodyl (Dulcolax) 10 mg RECTAL DAILY PRN PRN Reason: Constipation Celecoxib (Celebrex) 200 mg PO BID [facility] Last Admin: 01/19/19 08:36 Dose: 200 mg Admin: 01/18/19 20:10 Dose: 200 mg Admin: 01/18/19 09:11 Dose: 200 mg Diphenhydramine HCl (Benadryl) 25 - 50 mg PO Q6H PRN PRN Reason: Itching Docusate Sodium (Colace) 100 mg PO BID PRN PRN Reason: Constipation Famotidine (Pepcid) 40 mg PO DAILY [facility] Last Admin: 01/19/19 08:36 Dose: 40 mg Admin: 01/18/19 09:09 Dose: 40 mg Morphine Sulfate (Morphine) 1 - 3 mg IVPUSH Q3H PRN PRN Reason: Pain Ondansetron HCl (Zofran) 4 mg IVPUSH Q6H PRN PRN Reason: Nausea/Vomiting Polyethylene Glycol (Miralax) 17 gm PO DAILY [facility] Last Admin: 01/19/19 08:37 Dose: 17 gm Admin: 01/18/19 09:12 Dose: 17 gm Sodium Chloride (Saline Flush) 10 ml FLUSH ASDIRECTED PRN PRN Reason: Keep Vein Open Sodium Chloride (Saline Flush) 2.5 ml FLUSH ASDIRECTED PRN PRN Reason: Keep Vein Open - Assessment Assessment (Free Text/Narrative):: POD#2 R TKA acute posthemorrhagic anemia traumatic contreras removal - Plan Plan (Free Text/Narrative):: continue pain management, PT discharge medications written discharge instructions done anticipate transfer to [facility] tomorrow
[2019-01-20] MEDS: Acetaminophen 500 MG Tab PO SCH ×3 (01:00→12:07)
[2019-01-20 08:01] VITALS: BP 116/65
--- NOTE | 2019-01-20 08:03 | PCM.SURGPN ---
- General Info Date of Service: 01/20/19 Date of Surgery/Procedure: 01/17/19 POD#: 3 Functional Status: Reports: Pain Controlled, Tolerating Diet, Ambulating, Urinating - Review of Systems General: Reports: No Symptoms Pulmonary: Reports: No Symptoms Cardiovascular: Reports: No Symptoms Gastrointestinal: Reports: No Symptoms Genitourinary: Reports: No Symptoms Systems Review Comment:: pt resting comfortably in bed tolerating PO intake pain controlled pleasant this morning, no continued agitation noted by nursing staff ready for transfer to SNF today hematuria has grossly resolved - Patient Data Vitals - Most Recent: Last Vital Signs Temp 97.2 F 01/20/19 03:00 Pulse 79 01/20/19 03:00 Resp 16 01/20/19 03:00 BP 115/67 01/20/19 03:00 Pulse Ox 96 01/20/19 03:00 Weight - Most Recent: 85.729 kg I&O - Last 24 Hours: Intake & Output 01/19/19 01/20/19 01/20/19 22:59 06:59 14:59 Intake Total 500 500 Output Total 600 Balance -100 500 Med Orders - Current: Current Medications Acetaminophen (Tylenol Extra Strength) 1,000 mg PO Q6H [facility] Last Admin: 01/20/19 06:33 Dose: 1,000 mg Al Hydroxide/Mg Hydroxide (Mag-Al Plus) 30 ml PO Q4H PRN PRN Reason: Indigestion Aspirin (Ecotrin) 325 mg PO BID [facility] Last Admin: 01/19/19 20:53 Dose: 325 mg Bisacodyl (Dulcolax) 10 mg RECTAL DAILY PRN PRN Reason: Constipation Celecoxib (Celebrex) 200 mg PO BID [facility] Last Admin: 01/19/19 20:53 Dose: 200 mg Diphenhydramine HCl (Benadryl) 25 - 50 mg PO Q6H PRN PRN Reason: Itching Docusate Sodium (Colace) 100 mg PO BID PRN PRN Reason: Constipation Famotidine (Pepcid) 40 mg PO DAILY [facility] Last Admin: 01/19/19 08:36 Dose: 40 mg Morphine Sulfate (Morphine) 1 - 3 mg IVPUSH Q3H PRN PRN Reason: Pain Ondansetron HCl (Zofran) 4 mg IVPUSH Q6H PRN PRN Reason: Nausea/Vomiting Polyethylene Glycol (Miralax) 17 gm PO DAILY [facility] Last Admin: 01/19/19 08:37 Dose: 17 gm Sodium Chloride (Saline Flush) 10 ml FLUSH ASDIRECTED PRN PRN Reason: Keep Vein Open Sodium Chloride (Saline Flush) 2.5 ml FLUSH ASDIRECTED PRN PRN Reason: Keep Vein Open Discontinued Medications Atropine Sulfate (Atropine) 1 mg IVPUSH ASDIRECTED PRN PRN Reason: ACLS Guidelines Atropine Sulfate (Atropine) 0.5 mg IVPUSH ASDIRECTED PRN PRN Reason: Hypo-Perfusion Cefazolin Sodium/Dextrose (Ancef) Confirm Administered Dose 2 gm IV .STK-MED ONE Stop: 01/17/19 11:25 Dextrose/Water (Dextrose 50% In Water) 50 ml IVPUSH ASDIRECTED PRN PRN Reason: Hypoglycemia Epinephrine HCl (Adrenalin) 1 mg IVPUSH ASDIRECTED PRN PRN Reason: ACLS Guidelines Famotidine (Pepcid) 40 mg IVPUSH ONARRIVE [facility] Last Admin: 01/17/19 09:45 Dose: 40 mg Fentanyl (Sublimaze) Confirm Administered Dose 100 mcg .ROUTE .K-MED ONE Stop: 01/17/19 10:00 Fentanyl (Sublimaze) 50 - 100 mcg IVPUSH Q5M PRN PRN Reason: Pain Acetaminophen 1,000 mg/ Premix 100 mls @ 400 mls/hr IV ONARRIVE [facility] Last Admin: 01/17/19 09:50 Dose: 400 mls/hr Ropivacaine 49.25 ml/Ketorolac Tromethamine 30 mg/Epinephrine HCl 0.5 mg/ Clonidine HCl 80 mcg/ Sodium Chloride 100 mls @ 50 mls/sec INJECT ASDIRECTED [facility] Lactated Ringer's (Ringers, Lactated) 1,000 mls @ 100 mls/hr IV ASDIRECTED [facility] Last Admin: 01/17/19 09:44 Dose: 100 mls/hr Tranexamic Acid 2,000 mg/ (Sodium Chloride) 120 mls @ 600 mls/hr IV ASDIRECTED ONE Stop: 01/17/19 08:11 Last Admin: 01/17/19 15:08 Dose: Not Given Ropivacaine 49.25 ml/Ketorolac Tromethamine 30 mg/Epinephrine HCl 0.5 mg/ Sodium Chloride 100 mls @ 3,000 mls/hr INJECT ASDIRECTED [facility] Acetaminophen 1,000 mg/ Premix 100 mls @ 400 mls/hr IV Q6H [facility] Stop: 01/18/19 05:14 Last Admin: 01/18/19 05:03 Dose: 400 mls/hr Cefazolin Sodium/Dextrose 2 gm (/ Premix) 50 mls @ 100 mls/hr IV Q8H [facility] Stop: 01/18/19 04:29 Last Admin: 01/18/19 04:14 Dose: 100 mls/hr Ketorolac Tromethamine (Toradol) 30 mg IVPUSH ONARRIVE [facility] Last Admin: 01/17/19 09:46 Dose: 30 mg Ketorolac Tromethamine (Toradol) 15 mg IVPUSH Q6H [facility] Stop: 01/18/19 00:01 Last Admin: 01/17/19 23:05 Dose: 15 mg Lidocaine (Xylocaine-Mpf 2%) Confirm Administered Dose 5 ml .ROUTE .STK-MED ONE Stop: 01/17/19 09:59 Midazolam HCl (Versed 1 Mg/Ml) Confirm Administered Dose 2 mg .ROUTE .STK-MED ONE Stop: 01/17/19 10:00 Morphine Sulfate (Morphine Tongue Binder 30 Mg In 30 Ml) 30 mg IV ASDIRECTED PRN; Protocol PRN Reason: Pain Stop: 01/18/19 06:00 Last Admin: 01/17/19 13:49 Dose: 30 mg Naloxone HCl (Narcan) 0.1 mg IVPUSH ASDIRECTED PRN PRN Reason: Respiratory Depression Oxycodone HCl (Oxycodone) 5 - 10 mg PO Q4H PRN PRN Reason: Pain Stop: 01/18/19 06:00 Last Admin: 01/17/19 17:14 Dose: 5 mg Oxycodone/Acetaminophen (Percocet 325-5 Mg) 1 - 2 tab PO Q4H PRN PRN Reason: Pain Last Admin: 01/18/19 12:47 Dose: 2 tab Phenylephrine HCl (Phenylephrine In Ns 100 Mcg/Ml) Confirm Administered Dose 1 mg .ROUTE .STK-MED ONE Stop: 01/17/19 12:23 Propofol (Diprivan 20 Ml) Confirm Administered Dose 200 mg .ROUTE .STK-MED ONE Stop: 01/17/19 09:59 Propofol (Diprivan 20 Ml) Confirm Administered Dose 600 mg .ROUTE .STK-MED ONE Stop: 01/17/19 10:00 Scopolamine (Transderm-Scop) 1.5 mg TRDERM ONARRIVE [facility] Last Admin: 01/17/19 09:44 Dose: 1.5 mg Tranexamic Acid (Cyklokapron) Confirm Administered Dose 2,000 mg .ROUTE .STK- MED ONE Stop: 01/17/19 10:43 - Exam Wound/Incisions: Dressing Dry and Intact General: Alert, Oriented Cardiovascular: Regular Rate, Regular Rhythm Physical Findings Comment:: vss, afeb - Problem List & Annotations (1) Status post total knee replacement, right SNOMED Code(s): 9973244860289 Code(s): Z96.651 - PRESENCE OF RIGHT ARTIFICIAL KNEE JOINT Status: Acute Current Visit: Yes - Problem List Review Problem List Initiated/Reviewed/Updated: Yes - My Orders Last 24 Hours: Active Orders 24 hr Category Date Time Status Ready for Discharge [RC] PER UNIT ROUTINE Care 01/20/19 07:58 Ordered Medication Orders Acetaminophen (Tylenol Extra Strength) 1,000 mg PO Q6H [facility] Last Admin: 01/20/19 06:33 Dose: 1,000 mg Admin: 01/20/19 01:00 Dose: 1,000 mg Admin: 01/19/19 18:25 Dose: 1,000 mg Admin: 01/19/19 12:39 Dose: 1,000 mg Admin: 01/19/19 06:34 Dose: 1,000 mg Admin: 01/18/19 23:42 Dose: 1,000 mg Admin: 01/18/19 17:26 Dose: 1,000 mg Al Hydroxide/Mg Hydroxide (Mag-Al Plus) 30 ml PO Q4H PRN PRN Reason: Indigestion Aspirin (Ecotrin) 325 mg PO BID [facility] Last Admin: 01/19/19 20:53 Dose: 325 mg Admin: 01/19/19 08:36 Dose: 325 mg Admin: 01/18/19 20:09 Dose: 325 mg Admin: 01/18/19 09:11 Dose: 325 mg Bisacodyl (Dulcolax) 10 mg RECTAL DAILY PRN PRN Reason: Constipation Celecoxib (Celebrex) 200 mg PO BID [facility] Last Admin: 01/19/19 20:53 Dose: 200 mg Admin: 01/19/19 08:36 Dose: 200 mg Admin: 01/18/19 20:10 Dose: 200 mg Admin: 01/18/19 09:11 Dose: 200 mg Diphenhydramine HCl (Benadryl) 25 - 50 mg PO Q6H PRN PRN Reason: Itching Docusate Sodium (Colace) 100 mg PO BID PRN PRN Reason: Constipation Famotidine (Pepcid) 40 mg PO DAILY [facility] Last Admin: 01/19/19 08:36 Dose: 40 mg Admin: 01/18/19 09:09 Dose: 40 mg Morphine Sulfate (Morphine) 1 - 3 mg IVPUSH Q3H PRN PRN Reason: Pain Ondansetron HCl (Zofran) 4 mg IVPUSH Q6H PRN PRN Reason: Nausea/Vomiting Polyethylene Glycol (Miralax) 17 gm PO DAILY [facility] Last Admin: 01/19/19 08:37 Dose: 17 gm Admin: 01/18/19 09:12 Dose: 17 gm Sodium Chloride (Saline Flush) 10 ml FLUSH ASDIRECTED PRN PRN Reason: Keep Vein Open Sodium Chloride (Saline Flush) 2.5 ml FLUSH ASDIRECTED PRN PRN Reason: Keep Vein Open - Assessment Assessment (Free Text/Narrative):: POD#3 R TKA acute posthemorrhagic anemia traumatic contreras removal with hematuria, resolved - Plan Plan (Free Text/Narrative):: transfer to [facility] today continue pain management/PT prior to transfer d/ch summary #[id number]
[2019-01-20] MEDS: Polyethylene Glycol 3350 Powder 17 GM Packet PO SCH (08:30)
[2019-01-20] MEDS: Celecoxib 100 MG Cap PO SCH (08:31)
[2019-01-20] MEDS: Aspirin 325 MG Tab.EC PO SCH (08:32)
[2019-01-20] MEDS: Famotidine 20 MG Tab PO SCH (08:32)
--- NOTE | 2019-01-21 08:52 | DISCH ---
DATE OF DISCHARGE: 01/20/2019 PRIMARY CARE PHYSICIAN: Manjit PCP ADMITTING DIAGNOSIS: Degenerative joint disease, right knee, tricompartmental. OTHER MEDICAL DIAGNOSES: None. DISCHARGE DIAGNOSES: 1. Degenerative joint disease, right knee, tricompartmental. 2. Acute post hemorrhagic anemia. BRIEF HISTORY: Esteban is a 73-year-old male who has had progressive complaints of right knee pain. He has tried and failed conservative treatment. At that time, surgical treatment was recommended. On January 17, 2019, the patient underwent a right total knee arthroplasty using patient-specific instrumentation, done by Dr. Radha Scott. This was done under spinal anesthesia with sedation. Estimated blood loss was 50 mL. Tourniquet time was 41 minutes. There were no known complications. Upon completion of the procedure, the patient was transferred to the PACU and subsequently to Med/Surg for postoperative care. HOSPITAL COURSE: Postoperatively, the patient had a bit of confusion and agitation. He removed his Yang catheter traumatically and had gross hematuria subsequently. This did resolve through his hospital course. He had no increased urological pain. His agitation and confusion resolved with discontinuation of narcotics. His pain has been controlled with Tylenol. Physical Therapy followed him through his hospital stay. Aspirin 325 mg was started on postoperative day #1 as DVT prophylaxis. His vital signs have been stable. He has been afebrile. His hemoglobin on the morning of January 19 was 9.9. At this time, the patient is doing well. His pain is controlled with oral pain medications. He is ambulating well with a wheeled walker. He is tolerating oral intake well. He feels comfortable with transfer to a [facility] facility today. DISCHARGE MEDICATIONS: 1. Tylenol Extra Strength 500 mg. 2. Celebrex 200 mg. 3. Colace 100 mg. 4. MiraLax. 5. Aspirin 325 mg. For complete discharge instructions, please refer back to Dr. Scott's postoperative total knee arthroplasty patient instructions on the patient's EHR. Should he have questions or concerns prior to followup, he has been advised to contact the clinic. YONY SHERIFF /[id number]
== END 2019-01-20 12:30 | DRG 470 ==
LOC: MW.SDS 09:26 → MW.MS 14:48 → MW.SDS 14:50 → MW.MS 14:50
PROVIDERS: ADMIT Orthopaedic Surgery; ATTEND Orthopaedic Surgery
PROC: 0SRC0J9 Replacement of Right Knee Joint with Synthetic Substitute, Cemented, Open Approach (ICD-10-PCS; principal; 2019-01-17)
DX: M17.11 Unilateral primary osteoarthritis, right knee (principal); D62 Acute posthemorrhagic anemia; Z85.828 Personal history of other malignant neoplasm of skin; M25.761 Osteophyte, right knee; G89.18 Other acute postprocedural pain; R41.0 Disorientation, unspecified; T40.2X5A Adverse effect of other opioids, initial encounter; R31.0 Gross hematuria
CPT/HCPCS: 27447; 36415; 73560; 86850; 86900; 86901; 88305; 88311; A9270; C1713 ×2; C1776 ×3; J0131; J0171; J0690; J1885 ×2; J2001; J2250; J2274; J2370; J2704; J2795; J3010; J3490; J7050; J7120; 85014; 85018; 97161-GP; 97530-GP

== ENCOUNTER 2023-11-30 10:01 | Emergency (ER) | payer MEDICARE, OTHER ==
[2023-11-30] MEDS ORDERED: Lidocaine 1% 5 ML VIAL INJECT ONE (11:49)
[2023-11-30] MEDS ORDERED: Diphtheria,Pertussis(Acell),Tetanus Vaccine 0.5 ML Syringe IM ONE (11:49)
[2023-11-30 12:33] VITALS: BP 118/78; PULSE 83
== END 2023-11-30 12:38 | disposition home or self-care (01) ==
LOC: MW.ED 10:01
DX: S61.511A Laceration without foreign body of right wrist, initial encounter (principal); Z23 Encounter for immunization; W26.8XXA Contact with other sharp object(s), not elsewhere classified, initial encounter
CPT/HCPCS: 12002; 90471; 90715; 99282-25; J3490

== ENCOUNTER 2023-12-04 12:28 | Emergency (ER) | payer MEDICARE, OTHER ==
[2023-12-04 12:47] VITALS: BP 142/79; PULSE 102
== END 2023-12-04 13:08 | disposition home or self-care (01) ==
LOC: MW.ED 12:28
DX: R21 Rash and other nonspecific skin eruption (principal)
CPT/HCPCS: 99282; 99283

== ENCOUNTER 2023-12-11 12:34 | Emergency (ER) | payer MEDICARE, OTHER ==
[2023-12-11 12:59] VITALS: BP 155/72; PULSE 81
== END 2023-12-11 12:54 | disposition left against medical advice (07) ==
LOC: MW.ED 12:34
DX: Z48.02 Encounter for removal of sutures (principal)
CPT/HCPCS: 99281

== ENCOUNTER 2023-12-21 15:49 | Emergency (ER) | payer MEDICARE, OTHER ==
[2023-12-21 17:46] VITALS: BP 152/79; PULSE 93
== END 2023-12-21 17:51 | disposition home or self-care (01) ==
LOC: MW.ED 15:49
DX: T78.40XA Allergy, unspecified, initial encounter (principal)
CPT/HCPCS: 99282; 99283